=== PATIENT | male | born 1975 | race Caucasian/White ===

== ENCOUNTER 2025-01-03 07:01 | Day surgery (SDC) | payer OTHER ==
[~2025-01-03] VITALS: Ht 182.9 cm; Wt 116.6 kg
[~2025-01-03 07:01] MED LIST: LOSA25TA13 PO; SUMA25TA3 PO
[2025-01-03] MEDS ORDERED: propofoL 200 MG/20 ML VIAL As Ordered ONE (07:26)
[2025-01-03] MEDS ORDERED: LIDOCAINE 2% 100MG/5ML SDV (FOR ANES.) As Ordered ONE (07:26)
[2025-01-03 08:25] VITALS: BP 116/83; O2SAT 96
== END 2025-01-03 08:37 | disposition home or self-care (01) ==
LOC: M OPP 07:01
PROVIDERS: ATTEND Surgery
DX: Z12.11 Encounter for screening for malignant neoplasm of colon (principal); D12.6 Benign neoplasm of colon, unspecified; K64.2 Third degree hemorrhoids; K21.00 Gastro-esophageal reflux disease with esophagitis, without bleeding; K44.9 Diaphragmatic hernia without obstruction or gangrene; K31.89 Other diseases of stomach and duodenum; I10 Essential (primary) hypertension; G43.909 Migraine, unspecified, not intractable, without status migrainosus; Z79.899 Other long term (current) drug therapy